=== PATIENT | female | born 1975 | race Two or more races ===

== ENCOUNTER 2020-07-28 22:31 | Emergency (ER) | payer OTHER ==
[~2020-07-28] VITALS: Ht 162.6 cm; Wt 113.4 kg
[2020-07-28 22:40] VITALS: BP 134/93
[2020-07-28] MEDS ORDERED: diphenhydrAMINE HCL 50 MG/ML VIAL ONE (23:19)
[2020-07-28] MEDS ORDERED: PROCHLORPERAZINE EDISYLATE 10 MG/2 ML VIAL ONE (23:19)
[2020-07-28] MEDS ORDERED: KETOROLAC TROMETHAMINE 15 MG/ML VIAL ONE (23:19)
[2020-07-28] MEDS ORDERED: diphenhydrAMINE HCL 50 MG/ML VIAL IV ONE (23:30)
[2020-07-28] MEDS ORDERED: KETOROLAC TROMETHAMINE INJ 30 MG/ML VIAL IV ONE (23:30)
[2020-07-28] MEDS ORDERED: IV NS 0.9% 1,000 ML BAG IV ONE (23:30)
[2020-07-28] MEDS ORDERED: PROCHLORPERAZINE EDISYLATE 10 MG/2 ML VIAL IVP ONE (23:30)
--- NOTE | 2020-07-28 23:35 | NUR ---
Patient does not wish to proceed with medical care recommended by Dr. Ovalle. Patient given information related to possible complications, up to and including , which could occur as a result of leaving the hospital at this time. Patient verbalizes understanding of risks involved due to leaving against medical advice. Patient has signed AMA form.
== END 2020-07-28 23:35 | disposition left against medical advice (07) ==
LOC: ER 22:33
DX: R51.9 Headache, unspecified (principal); I10 Essential (primary) hypertension; G40.909 Epilepsy, unspecified, not intractable, without status epilepticus; J45.909 Unspecified asthma, uncomplicated; Z88.6 Allergy status to analgesic agent
CPT/HCPCS: J0780; J1200; J1885; J7030

== ENCOUNTER 2020-08-21 09:14 | Emergency (ER) | payer OTHER ==
[~2020-08-21] VITALS: Ht 160 cm; Wt 122.0 kg
--- NOTE | 2020-08-21 09:36 | NUR ---
Patient a/o x4. c/o of pain on left breast with pain scale of 5/10, also, noted lump on right breast. per patient it started a month ago. VSS. safety measures initiated, will continue to monitor.
--- NOTE | 2020-08-21 09:58 | NUR ---
seen and examined by dr. hutchinson at bedside.
[2020-08-21] MEDS ORDERED: CLIN300C12 PO (10:22)
--- NOTE | 2020-08-21 12:06 | NUR ---
Patient is refusing to talk to social work supervisor
--- NOTE | 2020-08-21 12:15 | NUR ---
Workforce Consultant consult: director of tax services consult requested for homelessness. Patient is a 45-year-old, female. SW met with patient at her bedside in the emergency department. Patient refused to interview with SW. Patient presented irritable and stated, I dont need a high school social studies teacher. Per chart, patient was brought in by ambulance on 08/21/20 with complaints of breast pain. SW asked patient about her current living arrangement and patient stated that she currently lives at [facility] ([id number], [address], [place] [address]). SW offered the patient homeless resources and patient declined resources. Patient signed homeless waiver and SW filed waiver in the patients chart. SW discussed discharge plans with the patient and patient stated that she plans to return to her prior living arrangement. Patient plans to use a rideshare service or public transportation to return. PLAN: Patient plans to return to her prior living arrangement. No further SS intervention at this time, however, SW will remain available as needed.
[2020-08-21 12:19] VITALS: BP 126/76
--- NOTE | 2020-08-21 12:19 | NUR ---
Discharge in stable condition. a/o x4, able to make needs known. per patient she is in a motel, health teaching, discharge instruction and prescription medication given and verbalized understanding, all belongings with patient, VSS. arm band removed.
== END 2020-08-21 12:19 | disposition home or self-care (01) ==
LOC: ER 09:22
DX: N61.0 Mastitis without abscess (principal); L30.4 Erythema intertrigo; G40.909 Epilepsy, unspecified, not intractable, without status epilepticus; I10 Essential (primary) hypertension; J45.909 Unspecified asthma, uncomplicated; Z88.6 Allergy status to analgesic agent; Z79.899 Other long term (current) drug therapy
CPT/HCPCS: 71045-TC; 76642-LT-TC

== ENCOUNTER 2020-12-29 09:54 | Emergency (ER) | payer OTHER ==
[~2020-12-29] VITALS: Ht 162.6 cm; Wt 122.5 kg
[~2020-12-29 09:54] MED LIST: CLIN300C12 PO
--- NOTE | 2020-12-29 10:12 | NUR ---
TO ER BED 3, C/O RT SIDE BACK PAIN STARTED LAST NIGHT, AAOX3, BREATHING EVEN AND NON LABORED. CONNECTED TO MONITOR
[2020-12-29 11:21] LABS: BASOPHILS # (AUTO) 0.1 K/uL (0.0-0.2); BASOPHILS % (AUTO) 1.3 % (0.0-2.0); EOSINOPHILS % (AUTO) 2.6 % (0.0-6.0); HEMATOCRIT 30 % (33-45); HEMOGLOBIN 9.6 g/dL (11.5-14.8); LYMPHOCYTES # (AUTO) 1.8 K/uL (0.8-4.8); MEAN CORPUSCULAR HGB CONC 31 g/dl (31.0-36.0); MEAN CORPUSCULAR VOLUME 65 fL (82-100); MONOCYTES % (AUTO) 12.8 % (2.0-12.0); NEUTROPHILS # (AUTO) 4.4 K/uL (1.8-8.9); NEUTROPHILS % (AUTO) 59.3 % (43.0-81.0); PLATELET COUNT (AUTO) 381 K/uL (150-450); WHITE BLOOD COUNT (AUTO) 7.5 K/uL (4.3-11.0)
[2020-12-29 11:29] LABS: BILIRUBIN,URINE SMALL (NEGATIVE); COLOR,URINE YELLOW (YELLOW); LEUKOCYTE ESTERASE ,URINE NEGATIVE (NEGATIVE); NITRITE, URINE NEGATIVE (NEGATIVE); PH,URINE 5.5 (5.0-8.0); PROTEIN,URINE 100 mg/dl (NEGATIVE); UGLUCOSE NEGATIVE (NEGATIVE)
[2020-12-29 11:44] LABS: CALCIUM, SERUM 8.1 mg/dL (8.5-10.1); CREATININE 0.9 mg/dL (0.6-1.3); POTASSIUM 4.1 mmol/L (3.5-5.1)
[2020-12-29] MEDS ORDERED: ACETAMINOPHEN 325 MG TABLET ONE (11:44)
[2020-12-29] MEDS ORDERED: MORPHINE SULFATE INJ 4 MG/ML DISP.SYRIN ONE (11:44)
[2020-12-29 11:49] LABS: BACTERIA,URINE Few /HPF (None Seen); CALCIUM OXALATE CRYSTALS,UR Few /HPF (None Seen); SQUAMOUS EPITHELIAL CELL,UR Moderate /HPF (None Seen)
[2020-12-29 11:50] LABS: BILIRUBIN,DIRECT 0.1 mg/dL (0.0-0.2); BILIRUBIN,TOTAL 0.3 mg/dL (0.2-1.0); TOTAL PROTEIN, SERUM 7.5 g/dL (6.4-8.2)
[2020-12-29] MEDS ORDERED: MORPHINE SULFATE INJ 2 MG/ML DISP.SYRIN IM ONE (12:00)
[2020-12-29] MEDS ORDERED: ACETAMINOPHEN 325 MG TABLET PO ONE (12:00)
[2020-12-29] MEDS ORDERED: CEFTRIAXONE 1GM BAG (ER ONLY) 50 ML IV ONE (12:53)
[2020-12-29] MEDS ORDERED: CEFTRIAXONE 1GM BAG (ER ONLY) 1 GM/50 ML PIGGYBACK IV ONE (13:00)
[2020-12-29] MEDS ORDERED: IV NS 0.9% 1,000 ML BAG IV ONE (13:00)
[2020-12-29] MEDS ORDERED: ONDANSETRON 4 MG TAB.RAPDIS ONE (13:07)
[2020-12-29] MEDS ORDERED: ONDANSETRON 4 MG TAB.RAPDIS PO ONE (13:30)
--- NOTE | 2020-12-29 13:36 | NUR ---
TAKEN TO CT
[2020-12-29 13:56] LABS: EOSINOPHILS % (MANUAL) 3 % (0-4); LYMPHOCYTES % (MANUAL) 27 % (16-48); MONOCYTES % (MANUAL) 11 % (0-11.0); NEUTROPHILS % (MANUAL) 59 (42-76)
[2020-12-29] MEDS ORDERED: ALBU18HF2 INH (14:24)
--- NOTE | 2020-12-29 14:33 | NUR ---
Patient discharged to home in stable condition. Written and verbal after care instructions given. Patient verbalizes understanding of instruction.
[2020-12-29 14:34] VITALS: BP 129/85
== END 2020-12-29 14:34 | disposition home or self-care (01) ==
LOC: ER 09:54
DX: R31.9 Hematuria, unspecified (principal); F17.210 Nicotine dependence, cigarettes, uncomplicated; G40.909 Epilepsy, unspecified, not intractable, without status epilepticus; I10 Essential (primary) hypertension; J45.909 Unspecified asthma, uncomplicated; Z88.6 Allergy status to analgesic agent; Z79.899 Other long term (current) drug therapy
CPT/HCPCS: 36415; 74176; 80048; 80076; 81001; 84703; 85007; 85025; 85730; 96372; 99284; 99406; J0696; J2270; J7030; Q0162

== ENCOUNTER 2021-02-03 16:47 | Emergency (ER) | payer OTHER ==
[~2021-02-03] VITALS: Ht 162.6 cm; Wt 122.5 kg
[~2021-02-03 16:47] MED LIST changes: +ALBU18HF2 INH
[2021-02-03 17:00] VITALS: BP 160/97
--- NOTE | 2021-02-03 20:24 | NUR ---
CALLED FOR TRIAGE NOT IN WAITING ROOM
--- NOTE | 2021-02-03 22:57 | NUR ---
PATIENT LEFT WITHOUT BEING SEEN BY
== END 2021-02-03 22:58 | disposition left against medical advice (07) ==
LOC: ER 16:50
DX: Z53.21 Procedure and treatment not carried out due to patient leaving prior to being seen by health care provider (principal); R10.9 Unspecified abdominal pain; M25.531 Pain in right wrist; R07.81 Pleurodynia; G40.909 Epilepsy, unspecified, not intractable, without status epilepticus; I10 Essential (primary) hypertension; J45.909 Unspecified asthma, uncomplicated

== ENCOUNTER 2021-03-10 16:30 | Emergency (ER) | payer OTHER ==
--- NOTE | 2021-03-10 17:09 | NUR ---
CALLLED IN ED WAITING ROOM. NO RESPONSE.
--- NOTE | 2021-03-10 17:19 | NUR ---
NO LONGER IN WAITING ROOM. LEFT WITHOUT BEING TRIAGE
== END 2021-03-10 17:20 | disposition left against medical advice (07) ==
LOC: ER 16:35
DX: Z53.21 Procedure and treatment not carried out due to patient leaving prior to being seen by health care provider (principal)

== ENCOUNTER 2021-06-03 00:21 | Emergency (ER) | payer OTHER ==
[~2021-06-03] VITALS: Ht 157.5 cm; Wt 90.7 kg
--- NOTE | 2021-06-03 01:22 | NUR ---
PRESENTED TO THE ER FOR C/O AUDITORY HALUCINATIONS AND SI. REQUESTING VOLUNTARY PSYCH ADMISSION TO [facility]. PATIENT AMBULATORY TO THE BATHROOM WITH STEADY GAITS. URINE SAMPLE OBTAINED, COVID SWAB DONE AND PT WAS PLACED ON SI OBERVATION. WILL CONT TO MONITOR
[2021-06-03 02:16] LABS: BILIRUBIN,URINE NEGATIVE (NEGATIVE); COLOR,URINE RED (YELLOW); LEUKOCYTE ESTERASE ,URINE TRACE (NEGATIVE); NITRITE, URINE NEGATIVE (NEGATIVE); PH,URINE 6.5 (5.0-8.0); PROTEIN,URINE 30 mg/dl (NEGATIVE); UGLUCOSE NEGATIVE (NEGATIVE)
[2021-06-03 02:20] LABS: HEMATOCRIT 29 % (33-45); HEMOGLOBIN 8.6 g/dL (11.5-14.8); MEAN CORPUSCULAR HGB CONC 30 g/dl (31.0-36.0); MEAN CORPUSCULAR VOLUME 56 fL (82-100); NEUTROPHILS % (AUTO) 58.8 % (43.0-81.0); PLATELET COUNT (AUTO) 373 K/uL (150-450); RED BLOOD CELL COUNT(AUTO) 5.14 MIL/uL (4.0-5.2); WHITE BLOOD COUNT (AUTO) 6.4 K/uL (4.3-11.0)
[2021-06-03 02:21] LABS: BASOPHILS % (AUTO) 0.6 % (0.0-2.0); EOSINOPHILS % (AUTO) 3.7 % (0.0-6.0); LYMPHOCYTES # (AUTO) 1.8 K/uL (0.8-4.8); LYMPHOCYTES % (AUTO) 27.4 % (20.0-44.0); MONOCYTES # (AUTO) 0.6 K/uL (0.1-1.30); MONOCYTES % (AUTO) 9.5 % (2.0-12.0); NEUTROPHILS # (AUTO) 3.8 K/uL (1.8-8.9)
[2021-06-03 02:27] LABS: RBC,URINE TOO NUMEROUS TO COUN /HPF (0-2); WBC,URINE 0-2 /HPF (0-3)
[2021-06-03 02:28] LABS: BACTERIA,URINE Rare /HPF (None Seen)
[2021-06-03 02:36] LABS: ALANINE AMINOTRANSFERASE 111 U/L (12-78); ALBUMIN 3.2 g/dL (3.4-5.0); ALCOHOL, BLOOD < 3 mg/dL (0-0); ALKALINE PHOSPHATASE 97 U/L (46-116); ASPARTATE AMINOTRANSFERASE 88 U/L (15-37); BILIRUBIN,DIRECT 0.1 mg/dL (0.0-0.2); BILIRUBIN,TOTAL 0.3 mg/dL (0.2-1.0); CALCIUM, SERUM 8.2 mg/dL (8.5-10.1); CARBON DIOXIDE 27 mmol/L (21-32); CHLORIDE 103 mmol/L (98-107); CREATININE 0.8 mg/dL (0.6-1.3); GLUCOSE 93 mg/dL (74-106); POTASSIUM 3.7 mmol/L (3.5-5.1); SODIUM SERUM 137 mmol/L (136-145); TOTAL PROTEIN, SERUM 7.7 g/dL (6.4-8.2); UREA NITROGEN, BLOOD 12 mg/dL (7-18)
--- NOTE | 2021-06-03 06:05 | NUR ---
FACESHEET AND CLINICALS FAXED TO [facility].
[2021-06-03 06:14] LABS: ACETAMINOPHEN 0 ug/ml (10-30)
--- NOTE | 2021-06-03 06:40 | NUR ---
PT REQUESTING TO BE DISCHARGED HOME. PT STATES SHE IS NOT SUICIDAL OR HOMICIDAL. PT STATES SHE WILL FOLLOW UP OUTPATIENT. DR ESCALANTE NOTIFIED
[2021-06-03 06:41] VITALS: BP 128/84
--- NOTE | 2021-06-03 06:41 | NUR ---
PT OK TO BE DISCHARGED PER DR ESCALANTE. Patient discharged to home in stable condition. Written and verbal after care instructions given. Patient verbalizes understanding of instruction.Patient is awake and alert to self, day, and place. PT ambulatory with a steady gait
[2021-06-03 12:28] LABS: EOSINOPHILS % (MANUAL) 6 % (0-4); LYMPHOCYTES % (MANUAL) 23 % (16-48); MONOCYTES % (MANUAL) 10 % (0-11.0); NEUTROPHILS % (MANUAL) 61 (42-76)
[2021-06-04] MEDS ORDERED: CEPH500T PO (22:34)
[2021-06-04] MEDS ORDERED: SULF1TAB48 PO (22:34)
== END 2021-06-03 06:41 | disposition home or self-care (01) ==
LOC: ER 00:22
DX: R45.851 Suicidal ideations (principal); F20.9 Schizophrenia, unspecified; G40.909 Epilepsy, unspecified, not intractable, without status epilepticus; J45.909 Unspecified asthma, uncomplicated; Z53.29 Procedure and treatment not carried out because of patient's decision for other reasons; Z20.822 Contact with and (suspected) exposure to COVID-19; D64.9 Anemia, unspecified; R79.89 Other specified abnormal findings of blood chemistry
CPT/HCPCS: 36415; 80048; 80076; 80143; 80307; 80320; 81001; 85007; 85025; 87426; 99285; C9803; G0480

== ENCOUNTER 2021-06-04 21:13 | Emergency (ER) | payer OTHER ==
[~2021-06-04] VITALS: Ht 160 cm; Wt 90.7 kg
[2021-06-04 21:31] VITALS: BP 133/99
[2021-06-04] MEDS ORDERED: HYDROCODONE/APAP 5/325MG TABLET PO ONE (22:30)
[2021-06-04] MEDS ORDERED: SULF1TAB48 PO (22:34)
[2021-06-04] MEDS ORDERED: CEPH500T PO (22:34)
[2021-06-04] MEDS ORDERED: HYDROCODONE/APAP 5/325MG TABLET ONE (22:35)
[2021-06-04] MEDS ORDERED: SULFAMETH/TRIMETH 800/160 MG 1 UDTAB TABLET ONE (22:39)
[2021-06-04] MEDS ORDERED: CEPHALEXIN MONOHYDRATE 500 MG CAPSULE PO ONE ×2 (22:39→23:00)
--- NOTE | 2021-06-04 22:45 | NUR ---
CALLED BOYFRIEND TO DISTRIBUTION ENGINEERING TECHNOLOGIST PT
[2021-06-04] MEDS ORDERED: SULFAMETH/TRIMETH 800/160 MG 1 UDTAB TABLET PO ONE (23:00)
--- NOTE | 2021-06-05 02:08 | NUR ---
Patient discharged to home in stable condition. Written and verbal after care instructions given. Patient verbalizes understanding of instruction.
== END 2021-06-05 02:08 | disposition home or self-care (01) ==
LOC: ER 21:26
DX: S90.861A Insect bite (nonvenomous), right foot, initial encounter (principal); L03.115 Cellulitis of right lower limb; G40.909 Epilepsy, unspecified, not intractable, without status epilepticus; I10 Essential (primary) hypertension; J45.909 Unspecified asthma, uncomplicated; F20.9 Schizophrenia, unspecified; Z88.6 Allergy status to analgesic agent; Z59.00 Homelessness unspecified; Z79.899 Other long term (current) drug therapy; W57.XXXA Bitten or stung by nonvenomous insect and other nonvenomous arthropods, initial encounter; Y93.89 Activity, other specified; Y92.89 Other specified places as the place of occurrence of the external cause; Y99.8 Other external cause status

== ENCOUNTER 2021-10-30 12:58 | Emergency (ER) | payer MEDICAID, OTHER ==
[~2021-10-30] VITALS: Ht 165.1 cm; Wt 83.9 kg
[~2021-10-30 12:58] MED LIST changes: +CEPH500T PO; +SULF1TAB48 PO
--- NOTE | 2021-10-30 13:23 | NUR ---
To ER bed 16, from home c/o vaginal bleeding x 2 days. states having diarrhea as well same onset, aaox3, breathing even and non labored, connected to monitor
--- NOTE | 2021-10-30 13:54 | NUR ---
URINE COLLECTED AND SENT TO LAB
[2021-10-30 14:11] LABS: BASOPHILS # (AUTO) 0.2 K/uL (0.0-0.2); BASOPHILS % (AUTO) 2.6 % (0.0-2.0); EOSINOPHILS % (AUTO) 2.3 % (0.0-6.0); HEMATOCRIT 31 % (33-45); HEMOGLOBIN 9.4 g/dL (11.5-14.8); LYMPHOCYTES # (AUTO) 1.4 K/uL (0.8-4.8); LYMPHOCYTES % (AUTO) 16.5 % (20.0-44.0); MEAN CORPUSCULAR HGB CONC 30 g/dl (31.0-36.0); MEAN CORPUSCULAR VOLUME 60 fL (82-100); MONOCYTES # (AUTO) 0.9 K/uL (0.1-1.30); MONOCYTES % (AUTO) 11.4 % (2.0-12.0); NEUTROPHILS # (AUTO) 5.5 K/uL (1.8-8.9); NEUTROPHILS % (AUTO) 67.2 % (43.0-81.0); PLATELET COUNT (AUTO) 329 K/uL (150-450); RED BLOOD CELL COUNT(AUTO) 5.23 MIL/uL (4.0-5.2); WHITE BLOOD COUNT (AUTO) 8.2 K/uL (4.3-11.0)
[2021-10-30 14:18] LABS: CREATININE 0.9 mg/dL (0.6-1.3); POTASSIUM 3.8 mmol/L (3.5-5.1)
[2021-10-30 14:24] LABS: ALBUMIN 3.1 g/dL (3.4-5.0); BILIRUBIN,DIRECT 0.1 mg/dL (0.0-0.2); BILIRUBIN,TOTAL 0.6 mg/dL (0.2-1.0); TOTAL PROTEIN, SERUM 7.5 g/dL (6.4-8.2)
[2021-10-30] MEDS ORDERED: IV NS 0.9% 1,000 ML BAG IV ONE (14:30)
[2021-10-30] MEDS ORDERED: PANTOPRAZOLE 40 MG VIAL IV ONE (14:30)
[2021-10-30] MEDS ORDERED: MORPHINE SULFATE INJ 2 MG/ML DISP.SYRIN IV ONE (14:30)
[2021-10-30] MEDS ORDERED: ONDANSETRON HCL/PF 4 MG/2 ML VIAL IVP ONE (14:30)
[2021-10-30] MEDS ORDERED: ONDANSETRON HCL/PF 4 MG/2 ML VIAL ONE (14:32)
[2021-10-30] MEDS ORDERED: PANTOPRAZOLE 40 MG VIAL ONE (14:32)
[2021-10-30] MEDS ORDERED: MORPHINE SULFATE INJ 2 MG/ML DISP.SYRIN ONE (14:32)
[2021-10-30 14:35] LABS: COLOR,URINE BROWN (YELLOW)
[2021-10-30] MEDS ORDERED: HYDROCODONE/APAP 10/325MG TABLET ONE (14:49)
[2021-10-30] MEDS ORDERED: ONDANSETRON 4 MG TAB.RAPDIS ONE (14:49)
--- NOTE | 2021-10-30 14:53 | NUR ---
TAKEN TO CT VIA [facility]
[2021-10-30] MEDS ORDERED: LIDOCAINE VISCOUS 2% UD 15 ML UDC MM ONE (15:00)
[2021-10-30] MEDS ORDERED: MAG HYDROX/AL HYDROX/SIMETH 30 ML UDC PO ONE (15:00)
[2021-10-30] MEDS ORDERED: FAMOTIDINE (20 MG) 20 MG TABLET PO ONE (15:00)
[2021-10-30] MEDS ORDERED: HYDROCODONE/APAP 10/325MG TABLET PO ONE (15:00)
[2021-10-30] MEDS ORDERED: ONDANSETRON 4 MG TAB.RAPDIS SL ONE (15:00)
[2021-10-30] MEDS ORDERED: MAG HYDROX/AL HYDROX/SIMETH 30 ML UDC ONE (15:12)
[2021-10-30] MEDS ORDERED: FAMOTIDINE (20 MG) 20 MG TABLET ONE (15:13)
[2021-10-30] MEDS ORDERED: LIDOCAINE VISCOUS 2% UD 15 ML UDC ONE (15:13)
[2021-10-30 16:04] LABS: BACTERIA,URINE 1+ /HPF (None Seen); RBC,URINE TOO NUMEROUS TO COUN /HPF (0-2); SQUAMOUS EPITHELIAL CELL,UR 0-2 /HPF (None Seen)
[2021-10-30] MEDS ORDERED: AMOX-430 PO ×2 (16:20→16:32)
[2021-10-30] MEDS ORDERED: HYDR-3972 PO ×2 (16:20→16:32)
[2021-10-30] MEDS ORDERED: FERR325T23 PO (16:20)
[2021-10-30] MEDS ORDERED: FERR210T PO (16:32)
[2021-10-30 16:50] VITALS: BP 118/69
[2021-10-30 17:00] LABS: EOSINOPHILS % (MANUAL) 2 % (0-4); LYMPHOCYTES % (MANUAL) 16 % (16-48); MONOCYTES % (MANUAL) 6 % (0-11.0); NEUTROPHILS % (MANUAL) 76 (42-76)
== END 2021-10-30 16:52 | disposition home or self-care (01) ==
LOC: ER 13:01
DX: A09 Infectious gastroenteritis and colitis, unspecified (principal); N39.0 Urinary tract infection, site not specified; R19.00 Intra-abdominal and pelvic swelling, mass and lump, unspecified site; N93.8 Other specified abnormal uterine and vaginal bleeding; G40.909 Epilepsy, unspecified, not intractable, without status epilepticus; I10 Essential (primary) hypertension; J45.909 Unspecified asthma, uncomplicated; F20.9 Schizophrenia, unspecified; Z88.6 Allergy status to analgesic agent; Z59.00 Homelessness unspecified; Z79.899 Other long term (current) drug therapy
CPT/HCPCS: 99285; 74176; 71045; 85025; 80048; 80076; 84703; 81001; 36415; 85007; J7030; Q0162; C9113; J2270; J2405

== ENCOUNTER 2021-11-04 15:26 | Emergency (ER) | payer MEDICAID, OTHER ==
[~2021-11-04] VITALS: Ht 167.6 cm; Wt 102.1 kg
[~2021-11-04 15:26] MED LIST changes: +AMOX-430 PO; +FERR210T PO; +HYDR-3972 PO
[2021-11-04 17:33] LABS: MONOCYTES # (AUTO) 0.9 K/uL (0.1-1.30); WHITE BLOOD COUNT (AUTO) 7.4 K/uL (4.3-11.0)
[2021-11-04 17:37] LABS: BASOPHILS # (AUTO) 0.2 K/uL (0.0-0.2); BASOPHILS % (AUTO) 2.2 % (0.0-2.0); EOSINOPHILS % (AUTO) 1.3 % (0.0-6.0); HEMATOCRIT 32 % (33-45); HEMOGLOBIN 9.9 g/dL (11.5-14.8); LYMPHOCYTES # (AUTO) 2.1 K/uL (0.8-4.8); MEAN CORPUSCULAR HGB CONC 31 g/dl (31.0-36.0); MEAN CORPUSCULAR VOLUME 60 fL (82-100); MONOCYTES % (AUTO) 11.5 % (2.0-12.0); NEUTROPHILS # (AUTO) 4.2 K/uL (1.8-8.9); PLATELET COUNT (AUTO) 417 K/uL (150-450); RED BLOOD CELL COUNT(AUTO) 5.41 MIL/uL (4.0-5.2)
[2021-11-04 17:46] LABS: CALCIUM, SERUM 8.5 mg/dL (8.5-10.1); CARBON DIOXIDE 27 mmol/L (21-32); CHLORIDE 104 mmol/L (98-107); GLUCOSE 90 mg/dL (74-106); POTASSIUM 4.1 mmol/L (3.5-5.1); SODIUM SERUM 142 mmol/L (136-145); UREA NITROGEN, BLOOD 13 mg/dL (7-18)
[2021-11-04 17:53] LABS: ALANINE AMINOTRANSFERASE 37 U/L (12-78); ALBUMIN 3.6 g/dL (3.4-5.0); ALKALINE PHOSPHATASE 93 U/L (46-116); ASPARTATE AMINOTRANSFERASE 31 U/L (15-37); BILIRUBIN,DIRECT 0.1 mg/dL (0.0-0.2); BILIRUBIN,TOTAL 0.4 mg/dL (0.2-1.0); TOTAL PROTEIN, SERUM 8.3 g/dL (6.4-8.2)
[2021-11-04 18:09] LABS: BILIRUBIN,URINE MODERATE (NEGATIVE); COLOR,URINE AMBER (YELLOW); LEUKOCYTE ESTERASE ,URINE TRACE (NEGATIVE); NITRITE, URINE POSITIVE (NEGATIVE); PH,URINE 6.5 (5.0-8.0); PROTEIN,URINE >=300 mg/dl (NEGATIVE); UGLUCOSE NEGATIVE (NEGATIVE)
[2021-11-04 18:25] LABS: BACTERIA,URINE Many /HPF (None Seen); RBC,URINE 81-100 /HPF (0-2)
[2021-11-04 18:26] LABS: SQUAMOUS EPITHELIAL CELL,UR Few /HPF (None Seen)
--- NOTE | 2021-11-04 18:55 | NUR ---
Patient discharged to home in stable condition. Written and verbal after care instructions given. Patient verbalizes understanding of instruction.
[2021-11-04 19:17] VITALS: BP 128/89
== END 2021-11-04 19:19 | disposition home or self-care (01) ==
LOC: ER 15:28
DX: R07.89 Other chest pain (principal); G40.909 Epilepsy, unspecified, not intractable, without status epilepticus; I10 Essential (primary) hypertension; J45.909 Unspecified asthma, uncomplicated; F20.9 Schizophrenia, unspecified; Z88.6 Allergy status to analgesic agent; Z59.00 Homelessness unspecified; Z79.899 Other long term (current) drug therapy
CPT/HCPCS: 36415; 70450-TC; 71045-TC; 80048-TC; 80076-TC; 81001; 84484-TC; 84703-TC; 85025-TC; 87086-TC; 87186-TC

== ENCOUNTER 2021-12-06 21:11 | Emergency (ER) | payer OTHER ==
[~2021-12-06] VITALS: Ht 160 cm; Wt 101.2 kg
[2021-12-06 21:22] VITALS: BP 143/87
[2021-12-06] MEDS ORDERED: LIDOCAINE HCL/MPF 1% 30 ML VIAL IJ ONE (22:23)
[2021-12-06] MEDS ORDERED: LORAZEPAM 1 MG TABLET ONE (22:28)
[2021-12-06] MEDS ORDERED: LORAZEPAM 1 MG TABLET PO ONE (22:30)
[2021-12-06] MEDS ORDERED: ACET325C7 PO (23:21)
--- NOTE | 2021-12-06 23:33 | NUR ---
Patient discharged to home in stable condition. Written and verbal after care instructions given. Patient verbalizes understanding of instruction.
== END 2021-12-06 23:34 | disposition home or self-care (01) ==
LOC: ER 21:22
DX: S61.211A Laceration without foreign body of left index finger without damage to nail, initial encounter (principal); I10 Essential (primary) hypertension; J45.909 Unspecified asthma, uncomplicated; Z88.8 Allergy status to other drugs, medicaments and biological substances; Z59.00 Homelessness unspecified; Z79.899 Other long term (current) drug therapy; W45.8XXA Other foreign body or object entering through skin, initial encounter; Y93.89 Activity, other specified; Y92.89 Other specified places as the place of occurrence of the external cause; Y99.8 Other external cause status
CPT/HCPCS: 99283; 12002; 73120; A6403; J3490

== ENCOUNTER 2022-01-13 16:16 | Emergency (ER) | payer OTHER ==
[~2022-01-13] VITALS: Ht 160 cm; Wt 108.4 kg
[~2022-01-13 16:16] MED LIST changes: +ACET325C7 PO
--- NOTE | 2022-01-13 16:46 | NUR ---
CALLED TO TRIAGE, NO ANSWER
[2022-01-13 17:16] VITALS: BP 154/80
--- NOTE | 2022-01-13 17:17 | NUR ---
BIBS C/O SKIN ABSCESS AND RASH TO LOWER ABDOMEN X 1 MONTH. AMBULATORY, PLACED ON BED.
--- NOTE | 2022-01-13 17:57 | NUR ---
TO ER CHAIR,NO APPARENT CHANGE IN CONDITION
[2022-01-13] MEDS ORDERED: LIDOCAINE 1%-EPI 1:100,000 20 ML VIAL TP ONE (18:30)
[2022-01-13] MEDS ORDERED: ACETAMINOPHEN 325 MG TABLET PO ONE (18:30)
[2022-01-13] MEDS ORDERED: ACETAMINOPHEN 325 MG TABLET ONE (19:27)
--- NOTE | 2022-01-13 19:55 | NUR ---
I&D DONE BY DR BARDALES DRESSING APPLIED WITH IODOFORM PACKING.
[2022-01-13] MEDS ORDERED: ACET-73 PO (20:14)
--- NOTE | 2022-01-13 20:35 | NUR ---
Patient discharged to home in stable condition. Written and verbal after care instructions given. Patient verbalizes understanding of instruction.
== END 2022-01-13 20:35 | disposition home or self-care (01) ==
LOC: ER 16:19
DX: L02.211 Cutaneous abscess of abdominal wall (principal); I10 Essential (primary) hypertension; J45.909 Unspecified asthma, uncomplicated; F20.9 Schizophrenia, unspecified; F17.200 Nicotine dependence, unspecified, uncomplicated; Z88.8 Allergy status to other drugs, medicaments and biological substances; Z60.2 Problems related to living alone; Z79.899 Other long term (current) drug therapy
CPT/HCPCS: 10060; 99282; A6403; A6407

== ENCOUNTER 2022-01-31 03:20 | Emergency (ER) | payer OTHER ==
[~2022-01-31 03:20] MED LIST changes: +ACET-73 PO
--- NOTE | 2022-01-31 03:45 | NUR ---
CALLED TO TRIAGE NO ANSWER
--- NOTE | 2022-01-31 04:15 | NUR ---
PATIENT NOT IN WAITING ROOM
== END 2022-01-31 04:30 | disposition left against medical advice (07) ==
LOC: ER 03:34
DX: Z53.21 Procedure and treatment not carried out due to patient leaving prior to being seen by health care provider (principal)

== ENCOUNTER 2022-01-31 11:22 | Emergency (ER) | payer OTHER ==
[~2022-01-31] VITALS: Ht 162.6 cm; Wt 105.2 kg
--- NOTE | 2022-01-31 11:30 | NUR ---
RECEIVED PT 46 YRS FEMALE CAME FROM HOME WALKING IN C/O ABDOMINAL WALL FOR ONE WEEK DRESSING INTACT PT HERE FOR change dressing draming look halling process
--- NOTE | 2022-01-31 12:45 | NUR ---
CLEAN WOUND AND SKIN BY LEONCIO SPRINGER [employer] WILL
[2022-01-31] MEDS ORDERED: ACETAMINOPHEN 325 MG TABLET PO ONE (13:00)
[2022-01-31] MEDS ORDERED: ACETAMINOPHEN ES 500 MG TABLET ONE (13:14)
--- NOTE | 2022-01-31 13:31 | NUR ---
Patient discharged to home in stable condition. Written and verbal after care instructions given. Patient verbalizes understanding of instruction.
[2022-01-31 13:36] VITALS: BP 146/83
== END 2022-01-31 13:38 | disposition home or self-care (01) ==
LOC: ER 11:26
DX: L98.499 Non-pressure chronic ulcer of skin of other sites with unspecified severity (principal); I10 Essential (primary) hypertension; J45.909 Unspecified asthma, uncomplicated; F20.9 Schizophrenia, unspecified; F41.9 Anxiety disorder, unspecified; F17.200 Nicotine dependence, unspecified, uncomplicated; Z86.69 Personal history of other diseases of the nervous system and sense organs; Z88.8 Allergy status to other drugs, medicaments and biological substances; Z60.2 Problems related to living alone; Z79.899 Other long term (current) drug therapy

== ENCOUNTER 2022-02-19 09:53 | Emergency (ER) | payer OTHER ==
[~2022-02-19] VITALS: Ht 162.6 cm; Wt 102.1 kg
[2022-02-19 10:12] VITALS: BP 129/77
[2022-02-19] MEDS ORDERED: CEPH500C2 PO (10:24)
[2022-02-19] MEDS ORDERED: SULF1TAB48 PO (10:24)
[2022-02-19] MEDS ORDERED: ACET-2605 PO (10:24)
[2022-02-19] MEDS ORDERED: ACETAMINOPHEN 325 MG TABLET ONE (10:29)
[2022-02-19] MEDS ORDERED: LET SOLN TOPICAL 8 ML UDC TP ONE ×2 (10:29→10:30)
[2022-02-19] MEDS ORDERED: ACETAMINOPHEN 325 MG TABLET PO ONE (10:30)
== END 2022-02-19 10:38 | disposition home or self-care (01) ==
LOC: ER 10:02
DX: L03.311 Cellulitis of abdominal wall (principal); J45.909 Unspecified asthma, uncomplicated; I10 Essential (primary) hypertension; F17.200 Nicotine dependence, unspecified, uncomplicated; Z60.2 Problems related to living alone; G40.909 Epilepsy, unspecified, not intractable, without status epilepticus; F41.9 Anxiety disorder, unspecified; Z88.6 Allergy status to analgesic agent; Z79.899 Other long term (current) drug therapy

== ENCOUNTER 2022-02-21 21:09 | Emergency (ER) | payer OTHER ==
[~2022-02-21] VITALS: Ht 170.2 cm; Wt 86.2 kg
[~2022-02-21 21:09] MED LIST changes: +ACET-2605 PO; +CEPH500C2 PO
[2022-02-21] MEDS ORDERED: ACETAMINOPHEN ES 500 MG TABLET PO ONE (23:00)
[2022-02-21] MEDS ORDERED: ACETAMINOPHEN ES 500 MG TABLET ONE (23:06)
--- NOTE | 2022-02-21 23:11 | NUR ---
Patient discharged to home in stable condition. Written and verbal after care instructions given. Patient verbalizes understanding of instruction.
[2022-02-21 23:12] VITALS: BP 130/77
== END 2022-02-21 23:12 | disposition home or self-care (01) ==
LOC: ER 21:16
DX: L03.311 Cellulitis of abdominal wall (principal); I10 Essential (primary) hypertension; J45.909 Unspecified asthma, uncomplicated; F20.9 Schizophrenia, unspecified; F41.9 Anxiety disorder, unspecified; Z88.8 Allergy status to other drugs, medicaments and biological substances; Z60.2 Problems related to living alone; Z79.899 Other long term (current) drug therapy

== ENCOUNTER 2023-07-04 02:51 | Emergency (ER) | payer OTHER ==
[~2023-07-04] VITALS: Ht 160 cm; Wt 104.3 kg
[2023-07-04] MEDS ORDERED: ACETAMINOPHEN ES 500 MG TABLET ONE (04:11)
[2023-07-04] MEDS ORDERED: TRAMADOL HCL 50 MG TABLET ONE (04:11)
[2023-07-04] MEDS: ACETAMINOPHEN ES 500 MG TABLET PO ONE (04:14)
[2023-07-04] MEDS: TRAMADOL HCL 50 MG TABLET PO ONE (04:15)
[2023-07-04] MEDS ORDERED: TRAM-351 PO (05:48)
[2023-07-04 05:56] VITALS: BP 138/87; TEMP 98.2; O2SAT 98
== END 2023-07-04 05:58 | disposition home or self-care (01) ==
LOC: ER 02:55
DX: S40.011A Contusion of right shoulder, initial encounter (principal); R07.89 Other chest pain; R56.9 Unspecified convulsions; J45.909 Unspecified asthma, uncomplicated; I10 Essential (primary) hypertension; Z88.6 Allergy status to analgesic agent; Z60.2 Problems related to living alone; F17.210 Nicotine dependence, cigarettes, uncomplicated; F10.10 Alcohol abuse, uncomplicated; F19.10 Other psychoactive substance abuse, uncomplicated; Y90.9 Presence of alcohol in blood, level not specified; Z87.42 Personal history of other diseases of the female genital tract; Z87.19 Personal history of other diseases of the digestive system; V09.9XXA Pedestrian injured in unspecified transport accident, initial encounter; Y93.01 Activity, walking, marching and hiking; Y92.488 Other paved roadways as the place of occurrence of the external cause; Y99.2 Volunteer activity
CPT/HCPCS: 71045-TC; 73030-TC

== ENCOUNTER 2024-09-25 08:28 | Emergency (ER) | payer OTHER ==
[~2024-09-25] VITALS: Ht 160 cm; Wt 86.2 kg
[~2024-09-25 08:28] MED LIST changes: +TRAM-351 PO
[2024-09-25] MEDS ORDERED: AMOX-430 PO (08:40)
[2024-09-25 09:10] VITALS: BP 136/82; TEMP 98.7; O2SAT 97
== END 2024-09-25 09:10 | disposition home or self-care (01) ==
LOC: ER 08:30
DX: H66.92 Otitis media, unspecified, left ear (principal); I10 Essential (primary) hypertension; F17.200 Nicotine dependence, unspecified, uncomplicated; J45.909 Unspecified asthma, uncomplicated; Z86.19 Personal history of other infectious and parasitic diseases; Z88.6 Allergy status to analgesic agent; Z60.2 Problems related to living alone; Z79.899 Other long term (current) drug therapy

== ENCOUNTER 2024-12-17 06:10 | Emergency (ER) | payer OTHER | END 2024-12-17 06:52 | disposition left against medical advice (07) | LOC: ER 06:22 | DX: N39.0 Urinary tract infection, site not specified (principal); Z53.21 Procedure and treatment not carried out due to patient leaving prior to being seen by health care provider ==

== ENCOUNTER 2024-12-24 22:43 | Emergency (ER) | payer OTHER ==
[~2024-12-24] VITALS: Ht 160 cm; Wt 81.6 kg
[2024-12-25 01:01] LABS: APPEARANCE,URINE SLIGHTLY CLOUDY (CLEAR); BLOOD, URINE 3+ Ery/uL (NEGATIVE); LEUKOCYTE ESTERASE ,URINE TRACE (NEGATIVE); NITRITE, URINE NEGATIVE (NEGATIVE); UGLUCOSE NEGATIVE (NEGATIVE)
[2024-12-25 01:18] LABS: ADD URINE CULTURE YES
[2024-12-25 01:43] LABS: PLATELET COUNT (AUTO) 266 K/uL (150-450); RED BLOOD CELL COUNT(AUTO) 5.39 MIL/uL (4.0-5.2); RED CELL DISTRIBUTION WIDTH 20.4 % (11.5-15.0); WHITE BLOOD COUNT (AUTO) 5.4 K/uL (4.3-11.0)
[2024-12-25 01:54] LABS: CALCIUM, SERUM 8.2 mg/dL (8.5-10.1); CREATININE 0.8 mg/dL (0.6-1.3); SODIUM SERUM 138 mmol/L (136-145); UREA NITROGEN, BLOOD 17 mg/dL (7-18)
[2024-12-25] MEDS: CEFUROXIME AXETIL 250 MG TABLET PO SCH (02:10)
[2024-12-25] MEDS ORDERED: CEPHALEXIN MONOHYDRATE 500 MG CAPSULE PO ONE (02:11)
[2024-12-25] MEDS ORDERED: ACETAMINOPHEN ES 500 MG TABLET ONE (02:11)
[2024-12-25] MEDS: CEPHALEXIN MONOHYDRATE 500 MG CAPSULE PO ONE (02:14)
[2024-12-25] MEDS ORDERED: CEPH250S PO (02:15)
[2024-12-25] MEDS: ACETAMINOPHEN 325 MG TABLET PO ONE (02:15)
[2024-12-25 05:47] LABS: EOSINOPHILS % (MANUAL) 3 % (0-4); LYMPHOCYTES % (MANUAL) 34 % (16-48); MONOCYTES % (MANUAL) 17 % (0-11.0); NEUTROPHILS % (MANUAL) 46 (42-76); PLATELET ESTIMATE ADEQUATE
[2024-12-25 05:55] VITALS: BP 110/75; TEMP 98; O2SAT 94
== END 2024-12-25 05:56 | disposition home or self-care (01) ==
LOC: ER 22:49
DX: N39.0 Urinary tract infection, site not specified (principal); J45.909 Unspecified asthma, uncomplicated; F17.200 Nicotine dependence, unspecified, uncomplicated; I10 Essential (primary) hypertension; Z59.00 Homelessness unspecified; Z86.018 Personal history of other benign neoplasm; Z86.19 Personal history of other infectious and parasitic diseases; Z88.6 Allergy status to analgesic agent; Z20.822 Contact with and (suspected) exposure to COVID-19
CPT/HCPCS: 36415; 71045-TC; 80048-TC; 81001; 84484-TC; 85027-TC; 87086-TC